=== PATIENT | male | born 1940 | race Caucasian/White ===

== ENCOUNTER → 2021-06-11 09:57 | Outpatient (BNVA) | payer MEDICARE, SELFPAY | PROVIDERS: PCP Family Medicine; Visit Provider Urology | DX: N40.0 Benign prostatic hyperplasia without lower urinary tract symptoms (principal) | CPT/HCPCS: 51798; 99212 ==

== ENCOUNTER → 2022-06-09 09:52 | Outpatient (BNVA) | payer MEDICARE, SELFPAY | PROVIDERS: PCP Family Medicine; Visit Provider Urology | DX: N40.0 Benign prostatic hyperplasia without lower urinary tract symptoms (principal) | CPT/HCPCS: 51798; 99212 ==

== ENCOUNTER 2023-06-13 10:36 | Outpatient (AMB) | payer MEDICARE, SELFPAY ==
--- NOTE | 2023-06-13 11:05 | A.OFFVIS_ITS ---
Intake Intake Visit Reasons: 1Y PSA(set) Intake Note: Patient is present for Follow Up PSA/PVR Urology Med: Tamsulosin Antibiotic Allergy:None Blood Thinner: None [facility] Allergies shrimp [SHRIMP] Allergy (Intermediate, Verified 06/09/22 09:58) HIVES shrimp Allergy (Unknown, Uncoded 06/11/21 10:04) Unknown Medication List - Last Reconciled 06/13/23 by Haroon Ruvalcaba MD losartan mg PO tamsulosin 0.4 mg PO DAILY 90 days HPI HPI Comments History of Present Illness Details Romel is a pleasant male. He is a patient of Dr. Main Banks. He is seen for the following urologic issues - lower urinary tract symptoms Yearly evaluation PVR 100 Adequate urinary parameters Remains on tamsulosin Lower urinary tract symptoms Prior history of urinary retention with UTI Current medication tamsulosin Good voiding parameters Nocturia minimal Effective stream BRINDA 2+ prostate 12 month review with PSA PFSH Medical History HTN (hypertension) H/O urinary retention BPH loc w urin obs/LUTS Surgical History History of surgery Social History Patient Tobacco Use Status: Former Tobacco user Review of Systems Const Denies chills and Denies fever(s) Card Reports no additional complaints and Denies syncope Resp Denies cough GI Denies abdominal pain and Denies heartburn Reports as per HPI and Denies change in libido Neuro Denies syncope Psych Denies change in libido Endo Denies change in libido Physical Exam Const General: cooperative, healthy appearing, comfortable and no acute distress Orientation/consciousness: patient oriented x3 HEENT Face and sinus: Yes normal facial exam Mouth: moist mucous membranes Neck Neck: Yes normal visual inspection, Yes full ROM and Yes trachea midline Chest Chest palpation & inspection: normal inspection of the chest Resp Effort & Inspection: normal respiratory effort, able to speak in complete sentences and no respiratory distress GI Inspection: Yes normal to inspection Back/Spine/Pelvis Cervical Spine: normal cervical lordosis Thoracic/Lumbar Spine: thoracic and lumbar spine normal to inspection Skin General skin exam: no rashes or lesions noted Neuro General: patient oriented x3, gait normal, tone normal and moves all extremities Extrem General: Yes normal to inspection and Yes capillary refill normal Office Procedures Post Void Residual Post Residual Void Post Void Residual (PVR): 100 [id number] Void Residual by ultrasound Assessment & Plan Assessment & Plan (1) BPH loc w urin obs/LUTS: Code(s): N40.1 - Benign prostatic hyperplasia with lower urinary tract symptoms Plan Twelve month follow-up Continue tamsulosin Orders: Orders AMB Post Void Residual by ultrasound Today N40.1 - Benign prostatic hyperplasia with lower urinary tract symptoms Medications: Refilled tamsulosin 0.4 mg PO DAILY 90 days 90 caps 3RF N40.1 - Benign prostatic hyperplasia with lower urinary tract symptoms Patient Instructions: Imaging studies, laboratory and physical exam results were discussed and reviewed in detail. No major barriers to patient understanding were identified. An opportunity to ask questions regarding the treatment plan was provided. All questions were answered. The patient expressed understanding and agreement with the above treatment plan. The patient is aware they should contact our office by phone for worsening of their current condition or the appearance of new urologic symptoms. Compliance is encouraged with any medications and followup testing that is ordered. It is a privilege to participate in the urologic care of your patient. If you have any questions or concerns regarding treatment for the above conditions, or other urologic issues, please do not hesitate to contact me. The office telephone contact is [phone]. This note is constructed using voice recognition software. While every effort has been made to ensure accuracy computer system validation specialist errors may have been included. Yours sincerely, Dr Haroon Ruvalcaba MD, [facility] - Urology Providers of Expert, Compassionate Care for the Genitourinary System Coding Level of Care Code Est Pt Level 4 (34849) Diagnoses BPH loc w urin obs/LUTS N40.1 CPT Codes Post Residual Void - PVR CPT Code: 58278-Ibmf Void Residual by ultrasound ([id number])
== END 2023-06-13 11:31 | disposition home or self-care (01) ==
PROVIDERS: PCP Family Medicine; Visit Provider Urology
DX: N40.1 Benign prostatic hyperplasia with lower urinary tract symptoms (principal)
CPT/HCPCS: 99214

== ENCOUNTER → 2023-06-13 10:36 | Outpatient (BNVA) | payer MEDICARE, SELFPAY | PROVIDERS: Visit Provider Urology | DX: N40.1 Benign prostatic hyperplasia with lower urinary tract symptoms (principal) | CPT/HCPCS: 51798; 99212 ==

== ENCOUNTER 2024-07-17 14:59 | Outpatient (AMB) | payer MEDICARE, SELFPAY ==
--- NOTE | 2024-07-17 15:05 | A.OFFVIS_ITS ---
Intake Visit Reasons: 1 yr/ PVR Intake Note: Patient is present for PVR Follow Up Urology Med: Tamsulosin Antibiotic Allergy: None Blood Thinner: None Last PVR:100ML Todays PVR: 0m Accompanied by: Self / Same As Patient Allergies shrimp [SHRIMP] Allergy (Intermediate, Verified 06/09/22 09:58) HIVES shrimp Allergy (Unknown, Uncoded 06/11/21 10:04) Unknown Medication List - Last Reconciled 07/17/24 by Haroon Ruvalcaba MD losartan mg PO tamsulosin 0.4 mg PO DAILY 90 days HPI Comments Details: Romel is a pleasant male. He is a patient of Dr. Main Banks. He is seen for the following urologic issues - lower urinary tract symptoms Yearly evaluation PVR 0 cc Adequate urinary parameters Remains on tamsulosin - will try coming off 06/17 4.1 Lower urinary tract symptoms Prior history of urinary retention with UTI Current medication tamsulosin Good voiding parameters Nocturia minimal Effective stream BRINDA 2+ prostate 12 month review with PSA PFS Medical History HTN (hypertension) H/O urinary retention BPH loc w urin obs/LUTS Surgical History History of surgery Social History Patient Tobacco Use Status: Former Tobacco user Review of Systems Const Denies chills and Denies fever(s) Card Reports no additional complaints and Denies syncope Resp Denies cough GI Denies abdominal pain and Denies heartburn Reports as per HPI and Denies change in libido Neuro Denies syncope Psych Denies change in libido Endo Denies change in libido Physical Exam Const General: cooperative, healthy appearing, comfortable and no acute distress Orientation/consciousness: patient oriented x3 HEENT Face and sinus: Yes normal facial exam Mouth: moist mucous membranes Neck Neck: Yes normal visual inspection, Yes full ROM and Yes trachea midline Chest Chest palpation & inspection: normal inspection of the chest Resp Effort & Inspection: normal respiratory effort, able to speak in complete sentences and no respiratory distress GI Inspection: Yes normal to inspection Back/Spine/Pelvis Cervical Spine: normal cervical lordosis Thoracic/Lumbar Spine: thoracic and lumbar spine normal to inspection Skin General skin exam: no rashes or lesions noted Neuro General: patient oriented x3, gait normal, tone normal and moves all extremities Extrem General: Yes normal to inspection and Yes capillary refill normal Office Procedures Post Void Residual Post Residual Void Post Void Residual (PVR): 100 [id number] Void Residual by ultrasound Assessment & Plan Assessment & Plan (1) BPH loc w urin obs/LUTS: Code(s): N40.1 - Benign prostatic hyperplasia with lower urinary tract symptoms Category: Medical Plan Twelve month follow-up PSA Orders: Orders AMB Post Void Residual by ultrasound Today N40.1 - Benign prostatic hyperplasia with lower urinary tract symptoms Prostate Specific Antigen 364 Days N40.1 - Benign prostatic hyperplasia with lower urinary tract symptoms Patient Instructions: Imaging studies, laboratory and physical exam results were discussed and reviewed in detail. No major barriers to patient understanding were identified. An opportunity to ask questions regarding the treatment plan was provided. All questions were answered. The patient expressed understanding and agreement with the above treatment plan. The patient is aware they should contact our office by phone for worsening of their current condition or the appearance of new urologic symptoms. Compliance is encouraged with any medications and followup testing that is ordered. It is a privilege to participate in the urologic care of your patient. If you have any questions or concerns regarding treatment for the above conditions, or other urologic issues, please do not hesitate to contact me. The office telephone contact is [phone]. This note is constructed using voice recognition software. While every effort has been made to ensure accuracy associate team physician errors may have been included. Yours sincerely, Dr Haroon Ruvalcaba MD, [facility] - Urology Providers of Expert, Compassionate Care for the Genitourinary System Coding Level of Care Code Est Pt Level 4 (25747) Diagnoses BPH loc w urin obs/LUTS N40.1 CPT Codes Post Residual Void - PVR CPT Code: 96171-Mcii Void Residual by ultrasound ([id number])
== END 2024-07-17 15:41 | disposition home or self-care (01) ==
PROVIDERS: PCP Family Medicine; Visit Provider Urology
DX: N40.1 Benign prostatic hyperplasia with lower urinary tract symptoms (principal)
CPT/HCPCS: 99214

== ENCOUNTER → 2024-07-17 14:59 | Outpatient (BNVA) | payer MEDICARE, SELFPAY | PROVIDERS: PCP Family Medicine; Visit Provider Urology | DX: N40.1 Benign prostatic hyperplasia with lower urinary tract symptoms (principal) | CPT/HCPCS: 51798; 99212 ==

== ENCOUNTER 2025-07-15 13:47 | Outpatient (REF) | payer MEDICARE, SELFPAY ==
--- OUTSIDE RECORDS SUMMARY | 2025-07-15 18:20 | XMS_ITS | Encounter Summary ---
Author Organization [facility] Address [address] [place] [address] Phone Care Team Providers Care Rod Pointer Name Role Phone Cesar Benítez MD Primary Care Prov ider Bipin Bautista DO Unavailable Encounter Details Date Type Department Care Team (Late st Contact Info) Description 08/29/2017 Transcribe Orders [facility] [address] [place] [id number] Cesar Benítez MD [address] [place] [address] [id number] [email or web address] Essential hypertension, benign (Primary Dx); Hyperlipidemia, unspecified hyperlipidemia type Social History Tobacco Use Types Packs/Day Years Used Date Smoking Tobacco: Never Assessed Sex and Gender Information Value Date Recorded Sex Assigned at Not on file Legal Sex Male 10:11 PM EDT Gender Identity Not on file Sexual Orientation Not on file documented as of this encounter Plan of Treatment Not on file documented as of this encounter Results * (ABNORMAL) Lipid panel (08/29/2017 8:46 AM EST) HDL 66 mg/dL [facility] Comment: Interpretation: Risk Level Males Decreased >45 mg/dL Average 40-45 mg/dL Increased <40 mg/dL CHOLESTEROL 204 0 - 240 mg/dL [facility] TRIGLYCERIDES 137 30 - 160 mg/dL [facility] LDL 111 50 - 129 mg/dL [facility] Comment: LDL levels in terms of risk for coronary heart disease: <100 mg/dL: Optimal 100-129 mg/dL: Near or above optimal 130-159 mg/dL: Borderline high 160-189 mg/dL: High >190 mg/dL: Very High CARDIAC RISK RATIO 3.1(L) 3.4 - 5.0 C [facility] Blood 08/29/2017 8:46 AM EST 08/29/2017 8:49 AM EST Cesar Olsen MD LAB BLOOD ORDERABL ES Final Result Performing Organization Address [facility]/ZIP Co de Phone Number [address] [address] * Basic metabolic panel (08/29/2017 8:46 AM EST) SODIUM 140 133 - 146 mmol/L [facility] CHLORIDE 102 96 - 108 mmol/L [facility] POTASSIUM 4.7 3.3 - 5.1 mmol/L [facility] CO2 28 21 - 35 mmol/L [facility] BUN 16 6 - 19 mg/dL [facility] CREATININE 0.90 0.5 - 1.5 mg/dL [facility] GLUCOSE 98 70 - 99 mg/dL [facility] CALCIUM 9.7 8.4 - 10.3 mg/dL [facility] EGFR >60 mL/min/1.7 3m2 [facility] Comment:Abnormal if <60. If patient is -[place], multiply the result by 1.21. ANION GAP 15 10 - 20 mmol/L [facility] Blood 08/29/2017 8:46 AM EST 08/29/2017 8:49 AM EST Cesar Olsen MD LAB BLOOD ORDERABL ES Final Result Performing Organization Address City/[facility]/ZIP Co de Phone Number [address] [address] documented in this encounter Visit Diagnoses Diagnosis Essential hypertension, benign- Primary Hyperlipidemia, unspecified hyperlipidemia type documented in this encounter Care Teams Rod Pointer Relationship Specialty Start Date End Date Cesar Benítez MD PCP - General Family Medicine 09/04/18 Bipin Bautista DO [address] [place] [address] [email or web address] Geriatric Medicine 04/01/25 documented as of this encounter Additional Source Comments The information contained in this document represents components of the legal health record. It is not the complete legal health record.[facility]
--- OUTSIDE RECORDS SUMMARY | 2025-07-15 18:20 | XMS_ITS | Encounter Summary ---
Author Organization [facility] Address [address] [place] [address] Phone Care Team Providers Care Test Department Helper Name Role Phone Cesar Benítez MD Primary Care Prov ider Bipin Bautista DO Unavailable [phone] Encounter Details Date Type Department Care Team (Late st Contact Info) Description 02/25/2019 Transcribe Orders [facility] [address] [place] [phone] Cesar Benítez MD [address] [place], [place] [id number] [email or web address] Essential hypertension, malignant (Primary Dx) Social History Tobacco Use Types Packs/Day Years Used Date Smoking Tobacco: Never Assessed Sex and Gender Information Value Date Recorded Sex Assigned at Not on file Legal Sex Male 10:11 PM EDT Gender Identity Not on file Sexual Orientation Not on file documented as of this encounter Plan of Treatment Not on file documented as of this encounter Results * (ABNORMAL) Basic metabolic panel (02/25/2019 8:12 AM EDT) SODIUM 142 133 - 146 mmol/L [facility] CHLORIDE 103 96 - 108 mmol/L [facility] POTASSIUM 4.4 3.3 - 5.1 mmol/L [facility] CO2 27 21 - 35 mmol/L [facility] BUN 20(H) 6 - 19 mg/dL [facility] CREATININE 0.90 0.5 - 1.5 mg/dL [facility] GLUCOSE 106(H) 70 - 99 mg/dL [facility] CALCIUM 9.8 8.4 - 10.3 mg/dL [facility] EGFR 82 >59 mL/min/1.7 3m2 [facility] Comment:If patient is black, multiply result by 1.159. Estimated glomerular filtration rate calculated using the CKD-EPI equation. ANION GAP 16 10 - 20 mmol/L [facility] Blood 02/25/2019 8:12 AM EDT 02/25/2019 9:18 AM EDT Cesar Olsen MD LAB BLOOD ORDERABL ES Final Result [facility] [address] [place] [address] documented in this encounter Visit Diagnoses Diagnosis Essential hypertension, malignant- Primary documented in this encounter Care Teams Test Department Helper Relationship Specialty Start Date End Date Cesar Benítez MD PCP - General Family Medicine 09/04/18 Bipin Bautista DO [address] [place] [id number] Geriatric Medicine 04/01/25 documented as of this encounter Additional Source Comments The information contained in this document represents components of the legal health record. It is not the complete legal health record.[facility]
--- OUTSIDE RECORDS SUMMARY | 2025-07-15 18:20 | XMS_ITS | Encounter Summary ---
Author Organization [facility] Address [address] [place] [address] Phone Care Team Providers Care Cardiology Fellow Name Role Phone Cesar Benítez MD Primary Care Prov ider Bipin Bautista DO Unavailable [phone] Encounter Details Date Type Department Care Team (Late st Contact Info) Description 09/30/[address] [facility] [address] [place] [address] Cesar Benítez MD [address] [place], [place] [id number] [email or web address] Essential hypertension, malignant (Primary Dx) [...] encounter Results * (ABNORMAL) Basic metabolic panel (04/16/2020 8:40 AM EDT) SODIUM 142 133 - 146 mmol/L [facility] CHLORIDE 103 96 - 108 mmol/L [facility] POTASSIUM 4.2 3.3 - 5.1 mmol/L [facility] CO2 27 21 - 35 mmol/L [facility] BUN 21(H) 6 - 19 mg/dL [facility] CREATININE 0.90 0.5 - 1.5 mg/dL [facility] GLUCOSE 101(H) 70 - 99 mg/dL [facility] CALCIUM 9.7 8.4 - 10.3 mg/dL [facility] EGFR 82 >59 mL/min/1.7 3m2 [facility] Comment:Estimated glomerular filtration rate calculated using the CKD-EPI equation. ANION GAP 16 10 - 20 mmol/L [facility] Blood 04/16/2020 8:40 AM EDT 04/16/2020 8:44 AM EDT Cesar Olsen MD LAB BLOOD ORDERABL ES Final Result Performing Organization Address City/[facility]/ZIP Co de Phone Number [address] [address] * (ABNORMAL) Lipid panel (09/30/2019 8:35 AM EST) HDL 72 mg/dL [facility] Comment: Interpretation <40 mg/dL: Low HDL cholesterol (major risk factor for CHD) Greater than or equal to 60 mg/dL: High HDL cholesterol ( negative risk factor for CHD) HDL - cholesterol is affected by a number of factors, e.g. smoking, excerise, hormones, sex and age. CHOLESTEROL 178 0 - 240 mg/dL [facility] TRIGLYCERIDES 75 30 - 160 mg/dL [facility] LDL 91 50 - 129 mg/dL [facility] Comment: LDL levels in terms of risk for coronary heart disease: <100 mg/dL: Optimal 100-129 mg/dL: Near or above optimal 130-159 mg/dL: Borderline high 160-189 mg/dL: High >190 mg/dL: Very High CARDIAC RISK RATIO 2.5(L) 3.4 - 5.0 C [facility] Blood 09/30/2019 8:35 AM EST 09/30/2019 10:28 AM EST Cesar Olsen MD LAB BLOOD ORDERABL ES Final Result Performing Organization Address City/[facility]/ZIP Co de Phone Number [address] [address] * (ABNORMAL) Basic metabolic panel (09/30/2019 8:35 AM EST) SODIUM 140 133 - 146 mmol/L [facility] CHLORIDE 99 96 - 108 mmol/L [facility] POTASSIUM 4.4 3.3 - 5.1 mmol/L [facility] CO2 28 21 - 35 mmol/L [facility] BUN 17 6 - 19 mg/dL [facility] CREATININE 0.90 0.5 - 1.5 mg/dL [facility] GLUCOSE 101(H) 70 - 99 mg/dL [facility] CALCIUM 9.2 8.4 - 10.3 mg/dL [facility] EGFR 82 >59 mL/min/1.7 3m2 [facility] Comment:If patient is black, multiply result by 1.159. Estimated glomerular filtration rate calculated using the CKD-EPI equation. ANION GAP 17 10 - 20 mmol/L [facility] Blood 09/30/2019 8:35 AM EST 09/30/2019 10:28 AM EST Cesar Olsen MD LAB BLOOD ORDERABL ES Final Result [address] [address] documented in this encounter Visit Diagnoses Diagnosis Essential hypertension, malignant- Primary documented in this encounter Care Teams Cardiology Fellow Relationship Specialty Start Date End Date Cesar Benítez MD PCP - General Family Medicine 09/04/18 Bipin Bautista DO [address] [place] [address] [email or web address] Geriatric Medicine 04/01/25 documented as of this encounter Additional Source Comments The information contained in this document represents components of the legal health record. It is not the complete legal health record.[facility]
--- OUTSIDE RECORDS SUMMARY | 2025-07-15 18:20 | XMS_ITS | Encounter Summary ---
Author Organization [facility] Address [address] [facility] [address] [place] [address] Phone Care Team Providers Care Scout Sniper Name Role Phone Cesar Benítez MD Primary Care Prov ider Bipin Bautista DO Unavailable [phone] Reason for Referral * MRI/CAT Scan - Closed Specialty Diagnoses / Procedures Referred By Christopher saunders Referred To Contact Radiology Diagnoses Dementia without behavioral disturbance, psychotic disturbance, mood disturbance, or anxiety, unspecified dementia severity, unspecified dementia type Procedures MRI Brain Cesar Benítez MD [address] [place] [address] Phone: tel: fax: [email or web address] Referral ID Status Reason Start Date Expiration Date Visits Re quested Visits Authorized [id number] Closed 03/03/2025 03/03/2026 1 1 Encounter Details Date Type Department Care Team (Late st Contact Info) Description 03/03/2025 Transcribe Orders Virtual Department [address] [place] [address] Cesar Benítez MD [address] [place] [address] [email or web address] Dementia without behavioral disturbance, psychotic disturbance, mood disturbance, or anxiety, unspecified dementia severity, unspecified dementia type (Primary Dx) Social History Tobacco Use Types Packs/Day Years Used Date Smoking Tobacco: Never Assessed Education Answer Date Recorded Are you interested in more education? Not on zee e 01/20/2023 Are you concerned about learning? Not on file 01/20/2023 No 01/20/2023 No 01/20/2023 Digital Access Answer Date Recorded No 02/20/2023 No 02/20/2023 No 02/20/2023 Reliable internet access at home? Not on file 02/20/2023 Device with a working camera? Not on file Sex and Gender Information Value Date Recorded Sex Assigned at Not on file Legal Sex Male 10:11 PM EDT Gender Identity Not on file Sexual Orientation Not on file documented as of this encounter Plan of Treatment Not on file documented as of this encounter Results * MRI BRAIN WITHOUT CONTRAST (03/22/2025 5:53 PM EDT) Anatomical Region Laterality Modality Head Magnetic Resonan ce 03/25/2025 8:15 PM EDT Impressions 03/25/2025 9:19 PM EDT 1. No acute intracranial abnormality. 2. Severe chronic small vessel ischemic changes. 3. Multiple scattered chronic microhemorrhages. 4. Generalized parenchymal volume loss without a regional pattern suggestive of a specific neurodegenerative diagnosis. Narrative 03/25/2025 9:19 PM EDT MRI BRAIN WITHOUT CONTRAST Referring clinician's provided indication for this examination in [facility]: Outside Radiology Order; dementia TECHNIQUE: MRI BRAIN WITHOUT CONTRAST Multi-sequence, multi-planar MRI of the brain was performed without intravenous contrast. COMPARISON: None FINDINGS: Brain Parenchyma: No evidence of acute infarct, mass or acute hemorrhage. There are confluent and scattered foci of T2 hyperintensity in the white matter, likely a manifestation of chronic small vessel disease. Scattered (greater than 40) foci of magnetic susceptibility effect are noted peripherally in the cerebral hemispheres. Scattered prominent perivascular spaces versus chronic lacunar infarcts are noted in the thakur radiata and centrum semiovale. Generalized parenchymal volume loss. Ventricular System and Extra-Axial Spaces: The ventricles and cortical sulci are prominent, as commonly seen in patients of this age. No evidence of midline shift or hydrocephalus. Extracranial Structures: Expected arterial flow signal is observed at the skull base. Scattered moderate paranasal sinus opacification. Procedure Note Luciano Whitfield MD - 03/25/2025 MRI BRAIN WITHOUT CONTRAST Referring clinician's provided indication for this examination in [facility]:Outside Radiology Order; dementia TECHNIQUE: MRI BRAIN WITHOUT CONTRAST Multi-sequence, multi-planar MRI of the brain was performed withoutintravenous contrast. COMPARISON: None FINDINGS: Brain Parenchyma: No evidence of acute infarct, mass or acute hemorrhage.There are confluent and scattered foci of T2 hyperintensity in the whitematter, likely a manifestation of chronic small vessel disease. Scattered(greater than 40) foci of magnetic susceptibility effect are notedperipherally in the cerebral hemispheres. Scattered prominent perivascularspaces versus chronic lacunar infarcts are noted in the thakur radiata andcentrum semiovale. Generalized parenchymal volume loss. Ventricular System and Extra-Axial Spaces: The ventricles and corticalsulci are prominent, as commonly seen in patients of this age. No evidenceof midline shift or hydrocephalus. Extracranial Structures: Expected arterial flow signal is observed at theskull base. Scattered moderate paranasal sinus opacification. IMPRESSION: 1. No acute intracranial abnormality. 2. Severe chronic small vessel ischemic changes. 3. Multiple scattered chronic microhemorrhages. 4. Generalized parenchymal volume loss without a regional patternsuggestive of a specific neurodegenerative diagnosis. Cesar Olsen MD IMG MR HEAD/NECK F inal Result documented in this encounter Visit Diagnoses Diagnosis Dementia without behavioral disturbance, psychotic disturbance, mood disturbance, or anxiety, unspecified dementia severity, unspecified dementia type- Primary Dementia without behavioral disturbance, psychotic disturbance, mood disturbance, or anxiety, unspecified dementia severity, unspecified dementia type documented in this encounter Care Teams Scout Sniper Relationship Specialty Start Date End Date Cesar Benítez MD PCP - General Family Medicine 09/04/18 Bipin Bautista DO [address] [place] [address] Geriatric Medicine 04/01/25 documented as of this encounter Additional Source Comments The information contained in this document represents components of the legal health record. It is not the complete legal health record.[facility]
--- OUTSIDE RECORDS SUMMARY | 2025-07-15 18:20 | XMS_ITS | Encounter Summary ---
Author Organization [facility] Address [address] [facility] [address] [place] [address] Phone Care Team Providers Care Relays Draftsperson Name Role Phone Cesar Benítez MD Primary Care Prov ider Bipin Bautista DO Unavailable [phone] Encounter Details Date Type Department Care Team (Late st Contact Info) Description 03/03/2025 Procedure Pass [facility], [address] [address] Social History Tobacco Use Types Packs/Day Years [...] on file documented as of this encounter Visit Diagnoses Not on filedocumented in this encounter Care Teams Relays Draftsperson Relationship Specialty Start Date End Date Cesar Benítez MD PCP - General Family Medicine 09/04/18 Bipin Bautista DO [address] [place] [address] [email or web address] Geriatric Medicine 04/01/25 documented as of this encounter Additional Source Comments The information contained in this document represents components of the legal health record. It is not the complete legal health record.[facility]
--- OUTSIDE RECORDS SUMMARY | 2025-07-15 18:20 | XMS_ITS | Clinical Summary ---
Author Organization [facility] Address [address] [address] Phone Care Team Providers Care Agricultural Sciences Professor Name Role Phone Cesar Benítez MD Primary Care Prov ider MicheleBipin fine Remington DO Unavailable [phone] Social History Tobacco Use Types Packs/Day Years [...] on file Sexual Orientation Not on file Last Filed Vital Signs Vital Sign Reading Time Taken Comments Blood Pressure - - Pulse - - Temperature - - Respiratory Rate - - Oxygen Saturation - - Inhaled Oxygen Concentration - - Weight 77.1 kg (170 lb) 03/16/2025 1:20 PM EDT Height 172.7 cm (5' 8 ) 03/16/2025 1:20 PM EDT Body Mass Index 25.85 03/16/2025 1:20 PM EDT Plan of Treatment Health Maintenance Due Date Last Done Comments Adult Td,Tdap Booster 1940 BLOOD PRESSURE 1940 DEPRESSION SCREENING 1953 ZOSTER VACCINES (1 of 2) 1991 RSV VACCINE (1 - 1-dose 75+ series) 2016 INFLUENZA VACCINE (#1) 2025 0, 06/15/2019, 07/13/2018, Additional history exists COVID-19 VACCINE (2024- season) 2025 12/02/2020, 11/04/2020 PNEUMOCOCCAL VACCINES (50+ years) Completed 03/03/2016, 09/05/2012 HEPATITIS A VACCINES Aged Out No long er eligible based on patient's age to complete this topic HIB VACCINES Aged Out No longer eligi ble based on patient's age to complete this topic MENINGOCOCCAL VACCINES (ACWY) Aged Out No longer eligible based on patient's age to complete this topic MENINGOCOCCAL VACCINES (B) Aged Out N o longer eligible based on patient's age to complete this topic Medical Devices Not on file Insurance [employer] MEDEX SUPPLEMENT MEDICARE PART A & B [employer] MED[employer] SUPPLEMENT MEDICARE PART A & B [employer] MEDEX SUPPLEMENT MEDICARE PART A & B [employer] MEDEX SUPPLEMENT MEDICARE PART A & B [employer] MEDEX SUPPLEMENT MEDICARE PART A & B [employer] MEDEX SUPPLEMENT MEDICARE PART A & B [employer] MEDEX SUPPLEMENT MEDICARE PART A & B [employer] MEDEX SUPPLEMENT MEDICARE PART A & B [employer] MEDEX SUPPLEMENT Care Teams Agricultural Sciences Professor Relationship Specialty Start Date End Date Cesar Benítez MD PCP - General Family Medicine 09/04/18 Bipin Bautista DO [address] [place] [phone] [email or web address] Geriatric Medicine 04/01/25 Additional Source Comments The information contained in this document represents components of the legal health record. It is not the complete legal health record.[facility]
--- OUTSIDE RECORDS SUMMARY | 2025-07-15 18:20 | XMS_ITS | Encounter Summary ---
Author Organization [facility] Address [address] [facility] [address] [place] [address] Phone Care Team Providers Care Extrusion Utility Worker Name Role Phone Cesar Benítez MD Primary Care Prov ider Bipin Bautista DO Unavailable [phone] Encounter Details Date Type Department Care Team (Late st Contact Info) Description 02/28/2018 Transcribe Orders [facility] [address] [place] [address] Cesar Benítez MD [address] [place] [address] [phone] [email or web address] Essential hypertension, benign (Primary Dx); Hyperlipidemia, unspecified [...] this encounter Results * (ABNORMAL) Lipid panel (02/28/2018 8:27 AM EDT) HDL 66 mg/dL [facility] Comment: Interpretation: Risk Level Males Decreased >45 mg/dL Average 40-45 mg/dL Increased <40 mg/dL CHOLESTEROL 182 0 - 240 mg/dL [facility] TRIGLYCERIDES 121 30 - 160 mg/dL [facility] LDL 92 50 - 129 mg/dL [facility] Comment: LDL levels in terms of risk for coronary heart disease: <100 mg/dL: Optimal 100-129 mg/dL: Near or above optimal 130-159 mg/dL: Borderline high 160-189 mg/dL: High >190 mg/dL: Very High CARDIAC RISK RATIO 2.8(L) 3.4 - 5.0 C [facility] Blood 02/28/2018 8:27 AM EDT 02/28/2018 9:00 AM EDT Cesar Olsen MD LAB BLOOD ORDERABL ES Final Result Performing Organization Address City/[facility]/ZIP Co de Phone Number [address] [address] * (ABNORMAL) Basic metabolic panel (02/28/2018 8:27 AM EDT) SODIUM 143 133 - 146 mmol/L [facility] CHLORIDE 104 96 - 108 mmol/L [facility] POTASSIUM 4.2 3.3 - 5.1 mmol/L [facility] CO2 29 21 - 35 mmol/L [facility] BUN 16 6 - 19 mg/dL [facility] CREATININE 1.00 0.5 - 1.5 mg/dL [facility] GLUCOSE 101(H) 70 - 99 mg/dL [facility] CALCIUM 9.3 8.4 - 10.3 mg/dL [facility] EGFR 73 >59 mL/min/1.7 3m2 [facility] Comment:If patient is black, multiply result by 1.159. The eGFR calculation has changed from the MDRD equation to the CKD-EPI equation as of November 28, 2017. ANION GAP 14 10 - 20 mmol/L [facility] Blood 02/28/2018 8:27 AM EDT 02/28/2018 9:00 AM EDT us Cesar Olsen MD LAB BLOOD ORDERABL ES Final Result Performing Organization Address City/[facility]/ZIP Co de Phone Number [address] [address] documented in this encounter Visit Diagnoses Diagnosis Essential hypertension, benign- Primary Hyperlipidemia, unspecified hyperlipidemia type documented in this encounter Care Teams Extrusion Utility Worker Relationship Specialty Start Date End Date Cesar Benítez MD [email or web address] PCP - General Family Medicine 09/04/18 Bipin Bautista DO [address] [place] [address] [email or web address] Geriatric Medicine 04/01/25 documented as of this encounter Additional Source Comments The information contained in this document represents components of the legal health record. It is not the complete legal health record.[facility]
[2025-07-15 18:39] LABS: Prostate Specific Antigen 5.22 ng/mL (<0.05-4.0)
== END 2025-07-15 13:48 | disposition home or self-care (01) ==
LOC: HO.WFDLDS 13:47
PROVIDERS: Visit Provider Urology
DX: N40.1 Benign prostatic hyperplasia with lower urinary tract symptoms (principal); Z12.5 Encounter for screening for malignant neoplasm of prostate
CPT/HCPCS: 36415; 84153

== ENCOUNTER 2025-07-30 10:05 | Outpatient (AMB) | payer MEDICARE, SELFPAY ==
--- NOTE | 2025-07-30 10:08 | MHC.OFFVIS ---
Intake Visit Reasons: 1y/PSA/PVR Intake Note: Patient is present for Yearly PSA/PVR Follow up Urology Med: Tamsulosin Antibiotic Allergy:None Blood Thinner: None PVR: 126ml Audio/Visual Manager Required: No Accompanied by: Self / Same As Patient Allergies shrimp (SHRIMP) Allergy (Intermediate, Verified 07/30/25 10:08) HIVES shrimp Allergy (Unknown, Uncoded 07/30/25 10:08) Unknown HPI Comments Details: Romel is a pleasant male. He is a patient of Dr. Main Banks. He is seen for the following urologic issues - lower urinary tract symptoms Yearly evaluation Slow PSA rise 06/17 4.1, 10/19 5.2 Off tamsulosin 12 month follow-up repeat PSA Lower urinary tract symptoms Prior history of urinary retention with UTI Current medication tamsulosin Good voiding parameters Nocturia minimal Effective stream BRINDA 2+ prostate 12 month review with PSA PFSH Medical History HTN (hypertension) H/O urinary retention BPH loc w urin obs/LUTS Surgical History History of surgery Social History Patient Tobacco Use Status: Former Tobacco user Review of Systems Const Denies chills and Denies fever(s) Card Reports no additional complaints and Denies syncope Resp Denies cough GI Denies abdominal pain and Denies heartburn Reports as per HPI and Denies change in libido Neuro Denies syncope Psych Denies change in libido Endo Denies change in libido Physical Exam Const General: cooperative, healthy appearing, comfortable and no acute distress Orientation/consciousness: patient oriented x3 HEENT Face and sinus: Yes normal facial exam Mouth: moist mucous membranes Neck Neck: Yes normal visual inspection, Yes full ROM and Yes trachea midline Chest Chest palpation & inspection: normal inspection of the chest Resp Effort & Inspection: normal respiratory effort, able to speak in complete sentences and no respiratory distress GI Inspection: Yes normal to inspection Back/Spine/Pelvis Cervical Spine: normal cervical lordosis Thoracic/Lumbar Spine: thoracic and lumbar spine normal to inspection Skin General skin exam: no rashes or lesions noted Neuro General: patient oriented x3, gait normal, tone normal and moves all extremities Extrem General: Yes normal to inspection and Yes capillary refill normal Office Procedures Post Void Residual Post Residual Void Post Void Residual (PVR): 126 [id number] Void Residual by ultrasound Assessment & Plan Assessment & Plan (1) BPH loc w urin obs/LUTS: Code(s): N40.1 - Benign prostatic hyperplasia with lower urinary tract symptoms Category: Medical Plan Twelve month follow-up repeat PVR and PSA Orders: Orders AMB Post Void Residual by ultrasound Today N40.1 - Benign prostatic hyperplasia with lower urinary tract symptoms Prostate Specific Antigen 12 Months N40.1 - Benign prostatic hyperplasia with lower urinary tract symptoms Medications: Discontinued tamsulosin Discontinued Reason: Patient Completed Course 0.4 mg PO DAILY 90 days 90 caps 0RF N40.1 - Benign prostatic hyperplasia with lower urinary tract symptoms Patient Instructions: This note is constructed using voice recognition software. While every effort has been made to ensure accuracy lavender farm worker errors may have been included. Imaging studies, laboratory and physical exam results were discussed and reviewed in detail. No major barriers to patient understanding were identified. An opportunity to ask questions regarding the treatment plan was provided. All questions were answered. The patient expressed understanding and agreement with the above treatment plan. The patient is aware they should contact our office by phone for worsening of their current condition or the appearance of new urologic symptoms. Compliance is encouraged with any medications and followup testing that is ordered. It is a privilege to participate in the urologic care of your patient. If you have any questions or concerns regarding treatment for the above conditions, or other urologic issues, please do not hesitate to contact me. The office telephone contact is [phone]. Sincerely, Dr Haroon Ruvalcaba MD, JEREMIE [facility] - Urology Compassionate Specialist Care for the Genitourinary System Coding Level of Care Code Est Pt Level 4 (10321) Complex EM visit Add On G2211 Diagnoses BPH loc w urin obs/LUTS N40.1 CPT Codes Post Residual Void - PVR CPT Code: 78183-Utyj Void Residual by ultrasound ([id number])
--- OUTSIDE RECORDS SUMMARY | 2025-07-30 11:36 | XMS_ITS | Encounter Summary ---
Author Organization [facility] Address [address] [facility] [address] [place] [address] Phone Care Team Providers Care Program Coordinator Name Role Phone Cesar Benítez MD Primary Care Prov ider Bipin Bautista DO Unavailable [phone] Reason for Referral * MRI/CAT Scan - Closed Specialty Diagnoses / Procedures Referred By Christopher saunders Referred To Contact Radiology Diagnoses Dementia without behavioral disturbance, psychotic disturbance, mood disturbance, or anxiety, unspecified dementia severity, unspecified dementia type Procedures MRI Brain Cesar Benítez MD [address] [place] [address] Phone: tel: fax: [email or web address] Referral ID Status Reason Start Date Expiration Date Visits Re quested Visits Authorized [id number] Closed 03/03/2025 03/03/2026 1 1 Encounter Details Date Type Department Care Team (Late st Contact Info) Description 03/03/2025 Transcribe Orders Virtual Department [address] [place] [address] Cesar Benítez MD [address] [place] [address] [email or web address] Dementia without behavioral disturbance, psychotic disturbance, [...] clinician's provided indication for this examination in [facility]: Outside Radiology Order; dementia TECHNIQUE: MRI BRAIN [...] clinician's provided indication for this examination in [facility]:Outside Radiology Order; dementia TECHNIQUE: MRI BRAIN WITHOUT [...] type documented in this encounter Care Teams Program Coordinator Relationship Specialty Start Date End Date Cesar Benítez MD PCP - General Family Medicine 09/04/18 Bipin Bautista DO [address] [place] [address] Geriatric Medicine 04/01/25 documented as of this encounter Additional Source Comments The information contained in this document represents components of the legal health record. It is not the complete legal health record.[facility]
--- OUTSIDE RECORDS SUMMARY | 2025-07-30 11:36 | XMS_ITS | Encounter Summary ---
Author Organization [facility] Address [address] [facility] [address] [place] [address] Phone Care Team Providers Care Online Journalist Name Role Phone Cesar Benítez MD Primary Care Prov ider Bipin Bautista DO Unavailable [phone] Encounter Details Date Type Department Care Team (Late st Contact Info) Description 08/29/2017 Transcribe Orders [address] [address] Cesar Benítez MD [address] [place] [address] [phone] [email or web address] Essential hypertension, benign (Primary Dx); Hyperlipidemia, unspecified [...] (08/29/2017 8:46 AM EST) HDL 66 mg/dL [facility] Comment: Interpretation: Risk Level Males Decreased >45 mg/dL Average 40-45 mg/dL Increased <40 mg/dL CHOLESTEROL 204 0 - 240 mg/dL [facility] TRIGLYCERIDES 137 30 - 160 mg/dL [facility] LDL 111 50 - 129 mg/dL [facility] Comment: LDL levels in terms of risk for coronary heart disease: <100 mg/dL: Optimal 100-129 mg/dL: Near or above optimal 130-159 mg/dL: Borderline high 160-189 mg/dL: High >190 mg/dL: Very High CARDIAC RISK RATIO 3.1(L) 3.4 - 5.0 C [facility] Blood 08/29/2017 8:46 AM EST 08/29/2017 8:49 AM EST us Cesar Olsen MD LAB BLOOD BKR FARTUN CLARISSE Final Result Performing Organization Address City/[facility]/ZIP Co de Phone Number [address] [address] * Basic metabolic panel (08/29/2017 8:46 AM EST) SODIUM 140 133 - 146 mmol/L [facility] CHLORIDE 102 96 - 108 mmol/L [facility] POTASSIUM 4.7 3.3 - 5.1 mmol/L [facility] CO2 28 21 - 35 mmol/L [facility] BUN 16 6 - 19 mg/dL [facility] CREATININE 0.90 0.5 - 1.5 mg/dL [facility] GLUCOSE 98 70 - 99 mg/dL [facility] CALCIUM 9.7 8.4 - 10.3 mg/dL [facility] EGFR >60 mL/min/1.7 3m2 [facility] Comment:Abnormal if <60. If patient is -Samoan, multiply the result by 1.21. ANION GAP 15 10 - 20 mmol/L [facility] Blood 08/29/2017 8:46 AM EST 08/29/2017 8:49 AM EST us Cesar Olsen MD LAB BLOOD BKR FARTUN ROBB Final Result [address] [address] documented in this encounter Visit Diagnoses Diagnosis Essential hypertension, benign- Primary Hyperlipidemia, unspecified hyperlipidemia type documented in this encounter Care Teams Online Journalist Relationship Specialty Start Date End Date Cesar Benítez MD [email or web address] PCP - General Family Medicine 12/11/18 Bipin Bautista DO [address] [place] [address] [email or web address] Geriatric Medicine 04/01/25 documented as of this encounter Additional Source Comments The information contained in this document represents components of the legal health record. It is not the complete legal health record.[facility]
--- OUTSIDE RECORDS SUMMARY | 2025-07-30 11:36 | XMS_ITS | Encounter Summary ---
Author Organization [facility] Address [address] [facility] [address] [place] [address] Phone Care Team Providers Care Drawer In Name Role Phone Cesar Benítez MD Primary Care Prov ider Bipin Bautista DO Unavailable [phone] Encounter Details Date Type Department Care Team (Late st Contact Info) Description 02/28/2018 Transcribe Orders [address] [address] Cesar Benítez MD [address] [place] [address] [phone] [email or web address] Essential hypertension, benign (Primary Dx); Hyperlipidemia, unspecified [...] (02/28/2018 8:27 AM EDT) HDL 66 mg/dL [facility] Comment: Interpretation: Risk Level Males Decreased >45 mg/dL Average 40-45 mg/dL Increased <40 mg/dL CHOLESTEROL 182 0 - 240 mg/dL [facility] TRIGLYCERIDES 121 30 - 160 mg/dL [facility] LDL 92 50 - 129 mg/dL [facility] Comment: LDL levels in terms of risk for coronary heart disease: <100 mg/dL: Optimal 100-129 mg/dL: Near or above optimal 130-159 mg/dL: Borderline high 160-189 mg/dL: High >190 mg/dL: Very High CARDIAC RISK RATIO 2.8(L) 3.4 - 5.0 C [facility] Blood 02/28/2018 8:27 AM EDT 02/28/2018 9:00 AM EDT Cesar Olsen MD LAB BLOOD BKR ORDMeghana ROBB Final Result Performing Organization Address City/[facility]/ZIP Co de Phone Number [address] [address] * (ABNORMAL) Basic metabolic panel (02/28/2018 8:27 AM EDT) SODIUM 143 133 - 146 mmol/L [facility] CHLORIDE 104 96 - 108 mmol/L [facility] POTASSIUM 4.2 3.3 - 5.1 mmol/L [facility] CO2 29 21 - 35 mmol/L [facility] BUN 16 6 - 19 mg/dL [facility] CREATININE 1.00 0.5 - 1.5 mg/dL [facility] GLUCOSE 101(H) 70 - 99 mg/dL [facility] CALCIUM 9.3 8.4 - 10.3 mg/dL [facility] EGFR 73 >59 mL/min/1.7 3m2 [facility] Comment:If patient is black, multiply result by 1.159. The eGFR calculation has changed from the MDRD equation to the CKD-EPI equation as of November 28, 2017. ANION GAP 14 10 - 20 mmol/L [facility] Blood 02/28/2018 8:27 AM EDT 02/28/2018 9:00 AM EDT Cesar Olsen MD LAB BLOOD BKR ORDMeghana GARCIAVAL Final Result [address] [address] documented in this encounter Visit Diagnoses Diagnosis Essential hypertension, benign- Primary Hyperlipidemia, unspecified hyperlipidemia type documented in this encounter Care Teams Drawer In Relationship Specialty Start Date End Date Cesar Benítez MD [email or web address] PCP - General Family Medicine 09/04/18 Bipin Bautista DO [address] [place] [phone] [email or web address] Geriatric Medicine 04/01/25 documented as of this encounter Additional Source Comments The information contained in this document represents components of the legal health record. It is not the complete legal health record.[facility]
--- OUTSIDE RECORDS SUMMARY | 2025-07-30 11:36 | XMS_ITS | Clinical Summary ---
Author Organization [facility] Address [address] [address] Phone Care Team Providers Care Straightener And Aligner Name Role Phone Cesar Benítez MD Primary Care Prov ider MicheleBipin fnie Remington DO Unavailable Social History Tobacco Use Types Packs/Day Years [...] topic Medical Devices Not on file Insurance [employer] MEDEX SUPPLEMENT MEDICARE PART A & B [employer] SUPPLEMENT MEDICARE PART A & B [employer] MEDEX SUPPLEMENT MEDICARE PART A & B [employer] MEDEX SUPPLEMENT MEDICARE PART A & B [employer] MEDEX SUPPLEMENT MEDICARE PART A & B [employer] MEDEX SUPPLEMENT MEDICARE PART A & B [employer] MEDEX SUPPLEMENT MEDICARE PART A & B [employer] MEDEX SUPPLEMENT MEDICARE PART A & B [employer] MEDEX SUPPLEMENT Care Teams Straightener And Aligner Relationship Specialty Start Date End Date Cesar Benítez MD PCP - General Family Medicine 09/04/18 Biipn Bautista DO [address] [place] [id number] [email or web address] Geriatric Medicine 04/01/25 Additional Source Comments The information contained in this document represents components of the legal health record. It is not the complete legal health record.[facility]
--- OUTSIDE RECORDS SUMMARY | 2025-07-30 11:36 | XMS_ITS | Encounter Summary ---
Author Organization [facility] Address [address] [facility] [address] [place] [address] Phone Care Team Providers Care Air Brake Rigger Name Role Phone Cesar Benítez MD Primary Care Prov ider Bipin Bautista DO Unavailable [phone] Encounter Details Date Type Department Care Team (Late st Contact Info) Description 03/03/2025 Procedure Pass [facility], [address] [address] Social History Tobacco Use Types Packs/Day Years [...] on filedocumented in this encounter Care Teams Air Brake Rigger Relationship Specialty Start Date End Date Cesar Benítez MD PCP - General Family Medicine 09/04/18 Bipin Bautista DO [address] [place] [address] [email or web address] Geriatric Medicine 04/01/25 documented as of this encounter Additional Source Comments The information contained in this document represents components of the legal health record. It is not the complete legal health record.[facility]
--- OUTSIDE RECORDS SUMMARY | 2025-07-30 11:36 | XMS_ITS | Encounter Summary ---
Author Organization [facility] Address [address] [facility] [address] [place] [address] Phone Care Team Providers Care Maintenance Fitter Name Role Phone Cesar Benítez MD Primary Care Prov ider Bipin Bautista DO Unavailable [phone] Encounter Details Date Type Department Care Team (Late st Contact Info) Description 02/25/2019 Transcribe Orders [address] [address] Cesar Benítez MD [address] [place] [address] [phone] [email or web address] Essential hypertension, malignant (Primary Dx) Social History [...] EDT) SODIUM 142 133 - 146 mmol/L [facility] CHLORIDE 103 96 - 108 mmol/L [facility] POTASSIUM 4.4 3.3 - 5.1 mmol/L [facility] CO2 27 21 - 35 mmol/L [facility] BUN 20(H) 6 - 19 mg/dL [facility] CREATININE 0.90 0.5 - 1.5 mg/dL [facility] GLUCOSE 106(H) 70 - 99 mg/dL [facility] CALCIUM 9.8 8.4 - 10.3 mg/dL [facility] EGFR 82 >59 mL/min/1.7 3m2 [facility] Comment:If patient is black, multiply result by 1.159. Estimated glomerular filtration rate calculated using the CKD-EPI equation. ANION GAP 16 10 - 20 mmol/L [facility] Blood 02/25/2019 8:12 AM EDT 02/25/2019 9:18 AM EDT Cesar Olsen MD LAB BLOOD BKR FARTUN ROBB Final Result [address] [address] documented in this encounter Visit Diagnoses Diagnosis Essential hypertension, malignant- Primary documented in this encounter Care Teams Maintenance Fitter Relationship Specialty Start Date End Date Cesar Benítez MD PCP - General Family Medicine 09/04/18 Bipin Bautista DO [address] [place] [id number] Geriatric Medicine 04/01/25 documented as of this encounter Additional Source Comments The information contained in this document represents components of the legal health record. It is not the complete legal health record.[facility]
--- OUTSIDE RECORDS SUMMARY | 2025-07-30 11:37 | XMS_ITS | Encounter Summary ---
Author Organization [facility] Address [address] [facility] [address] [place] [address] Phone Care Team Providers Care Architectural Draftsperson Name Role Phone Cesar Benítez MD Primary Care Prov ider Bipin Bautista DO Unavailable [phone] Encounter Details Date Type Department Care Team (Late st Contact Info) Description 09/30/2019 Transcribe Orders [facility] [address] [address] Cesar Benítez MD [address] [place] [address] [phone] [email or web address] Essential hypertension, malignant (Primary Dx) Social [...] EDT) SODIUM 142 133 - 146 mmol/L [facility] CHLORIDE 103 96 - 108 mmol/L [facility] POTASSIUM 4.2 3.3 - 5.1 mmol/L [facility] CO2 27 21 - 35 mmol/L [facility] BUN 21(H) 6 - 19 mg/dL [facility] CREATININE 0.90 0.5 - 1.5 mg/dL [facility] GLUCOSE 101(H) 70 - 99 mg/dL [facility] CALCIUM 9.7 8.4 - 10.3 mg/dL [facility] EGFR 82 >59 mL/min/1.7 3m2 [facility] Comment:Estimated glomerular filtration rate calculated using the CKD-EPI equation. ANION GAP 16 10 - 20 mmol/L [facility] Blood 04/16/2020 8:40 AM EDT 04/16/2020 8:44 AM EDT Cesar Olsen MD LAB BLOOD BKR FARTUN ROBB Final Result Performing Organization Address City/[facility]/ZIP Co de Phone Number [address] [address] * (ABNORMAL) Lipid panel (09/30/2019 8:35 AM EST) HDL 72 mg/dL [facility] Comment: Interpretation <40 mg/dL: Low HDL cholesterol (major risk factor for CHD) Greater than or equal to 60 mg/dL: High HDL cholesterol ( negative risk factor for CHD) HDL - cholesterol is affected by a number of factors, e.g. smoking, excerise, hormones, sex and age. CHOLESTEROL 178 0 - 240 mg/dL [facility] TRIGLYCERIDES 75 30 - 160 mg/dL [facility] LDL 91 50 - 129 mg/dL [facility] Comment: LDL levels in terms of risk for coronary heart disease: <100 mg/dL: Optimal 100-129 mg/dL: Near or above optimal 130-159 mg/dL: Borderline high 160-189 mg/dL: High >190 mg/dL: Very High CARDIAC RISK RATIO 2.5(L) 3.4 - 5.0 C [facility] Blood 09/30/2019 8:35 AM EST 09/30/2019 10:28 AM EST Cesar Olsen MD LAB BLOOD BKR FARTUN ROBB Final Result Performing Organization Address City/[facility]/ZIP Co de Phone Number [address] [address] * (ABNORMAL) Basic metabolic panel (09/30/2019 8:35 AM EST) SODIUM 140 133 - 146 mmol/L [facility] CHLORIDE 99 96 - 108 mmol/L [facility] POTASSIUM 4.4 3.3 - 5.1 mmol/L [facility] CO2 28 21 - 35 mmol/L [facility] BUN 17 6 - 19 mg/dL [facility] CREATININE 0.90 0.5 - 1.5 mg/dL [facility] GLUCOSE 101(H) 70 - 99 mg/dL [facility] CALCIUM 9.2 8.4 - 10.3 mg/dL [facility] EGFR 82 >59 mL/min/1.7 3m2 [facility] Comment:If patient is black, multiply result by 1.159. Estimated glomerular filtration rate calculated using the CKD-EPI equation. ANION GAP 17 10 - 20 mmol/L [facility] Blood 09/30/2019 8:35 AM EST 09/30/2019 10:28 AM EST Cesar Olsen MD LAB BLOOD BKR FARTUN ROBB Final Result Performing Organization Address City/State/[facility] Co de Phone Number [address] [address] documented in this encounter Visit Diagnoses Diagnosis Essential hypertension, malignant- Primary documented in this encounter Care Teams Architectural Draftsperson Relationship Specialty Start Date End Date Cesar Benítez MD PCP - General Family Medicine 09/04/18 Bipin Bautista DO [address] [place] [id number] Geriatric Medicine 04/01/25 documented as of this encounter Additional Source Comments The information contained in this document represents components of the legal health record. It is not the complete legal health record.[facility]
== END 2025-07-30 10:34 | disposition home or self-care (01) ==
LOC: HO.HUSH 10:06
PROVIDERS: PCP Family Medicine; Visit Provider Urology
DX: N40.1 Benign prostatic hyperplasia with lower urinary tract symptoms (principal)
CPT/HCPCS: 99214

== ENCOUNTER → 2025-07-30 10:05 | Outpatient (BNVA) | payer MEDICARE, SELFPAY | PROVIDERS: PCP Family Medicine; Visit Provider Urology | DX: N40.1 Benign prostatic hyperplasia with lower urinary tract symptoms (principal) | CPT/HCPCS: 51798; 99212 ==

== ENCOUNTER 2025-08-13 14:29 | Emergency (ER) | payer MEDICARE, SELFPAY ==
--- NOTE | ~2025-08-13 | CT_ITS ---
CLINICAL HISTORY: lower abdominal pain CT ABDOMEN AND PELVIS WITH CONTRAST Comparison: None provided Findings: Bilateral lower lobe atelectasis and/or scarring. 4 mm nodule in the right lower lobe with no visible calcifications. No acute abnormalities in the solid organs. Probable small cysts in the liver and left kidney. 3.5 cm and 3.8 cm right renal cysts. No large calcified gallstone. Atherosclerotic changes; no AAA. Mildly thickened adrenal glands can be seen with hyperplasia. No discrete nodule. [id number]-[id number] fluid distention of the ascending, transverse and descending colon. Moderate amount of retained stool in the sigmoid colon with rectal impaction up to 8.0 cm. Multiple diverticula throughout the colon with no significant mucosal or paracolic edema. The appendix is not visualized. No small-bowel obstruction or ileus. No ascites, free air or pneumatosis. Fat containing small periumbilical hernia. Fat containing small left inguinal hernia. The prostate is enlarged with AP x transverse dimensions of 4.3 x 6.1 cm. There is mass effect on and likely invasion of the urinary bladder base. There is diffuse irregular urinary bladder wall thickening. Mild superior endplate compression deformity in T12 with no significant bony retropulsion. No lymphadenopathy or osteoblastic lesion. IMPRESSION: 1. Colonic diverticulosis with no convincing evidence for acute diverticulitis. 2. Prostatomegaly. Urinary bladder wall thickening secondary to cystitis versus outlet obstruction. 3. No acute obstructive uropathy or urolithiasis. 4. Nonspecific fluid distention of multiple segments of the colon. Rectal impaction. 5. Nonspecific 4 mm nodule in the right lower lobe. 6. Age-indeterminate mild T12 compression fracture. This document has been electronically signed by: Cecilia Flower DO on 08/13/2025 18:56:58
[2025-08-13 14:34] VITALS: BP 143/80; PULSE 92; RESP 18; TEMP 36.6; O2SAT 98; BMI 24.6
[2025-08-13 15:10] LABS: Hematocrit 39.4 % (42.0-52.0); Hemoglobin 14.0 g/dl (14.0-18.0); Imm Gran Abs Auto 0.07 X10*3/uL (0.00-0.03); Imm Gran Pct Auto 1.0 % (0.0-0.4); Lymphocytes Absolute Auto 0.9 X10*3/uL (1.2-4.9); MANUAL DIFF FLAG SCAN; Mean Corpuscular HGB Conc 35.5 g/dl (31.0-36.0); Mean Corpuscular Volume 96.1 fL (80.0-98.0); NRBC Abs Auto 0.000 X10*3/uL (0.0-0.012); NRBC Pct Auto 0.0 /100WBC (0.0-0.2); PLT CLUMP 1; Red Blood Count 4.10 X10*6/uL (4.60-5.80); SCAN SMEAR FLAG 1; White Blood Count 7.1 X10*3/uL (4.8-10.8)
[2025-08-13 15:11] LABS: Mean Corpuscular Hemoglobin 34.1 pg (27.0-33.0)
[2025-08-13 15:29] LABS: Platelet Count 128 X10*3/uL (160-400)
[2025-08-13 17:21] LABS: Alanine Aminotransferase 21 U/L (0-40); Albumin Level 4.3 g/dL (3.5-5.0); Alkaline Phosphatase 56 U/L (39-117); Anion Gap 12 (12-20); Aspartate Amino Transferase 30 U/L (5-37); Blood Urea Nitrogen 20 mg/dL (9-16); Calcium 9.1 mg/dL (8.4-10.2); Carbon Dioxide 26 mmol/L (22-29); Chloride 105 mmol/L (96-108); Creatinine Clr Calc Pharmacy 67.4; Estimated Glomerular Filt Rate > 60; Potassium 3.9 mmol/L (3.3-5.1); Sodium 139 mmol/L (135-145); Total Protein 6.4 g/dL (6.5-8.0)
--- NOTE | 2025-08-13 17:48 | ED.ABDPAIN ---
HPI - Abdominal Pain General Chief Complaint: Abdominal Pain Stated Complaint: ABD PAIN,DIARRHEA X1W,FAM CONCERN FOR DEHYDRATION Time Seen by Provider: 08/13/25 14:44 Source: patient, family, RN notes reviewed and old records reviewed Mode of arrival: EMS Limitations: other (Dementia) History of Present Illness ED Provider: Dev HPI narrative: Patient is an 83 year old male with a pmhx of BPH, Dementia, and HTN presenting with an approximately 6 day history of diarrhea. Patient's family members states the pt complained of diarrhea on Wednesday 08/08. Yesterday, pt remembers the abdominal pain starting and having leaking diarrhea that is dark in color, and pain with defecation, straining, and feeling of incomplete emptying. Pt reports taking a laxative, Delucolax in hopes to relieve his symptoms. Denies blood in stool. Pt states at some point he did a self digital rectal exam which he felt a ball of stool. Related Data Home Medications ?Medication ?Instructions ?Recorded ?Confirmed losartan 50 mg tablet mg PO 06/11/21 07/17/24 memantine 10 mg tablet 10 mg PO BID 07/30/25 Previous Rx's ?Medication ?Instructions ?Recorded docusate sodium 100 mg capsule 100 mg PO BID PRN constipation #20 08/13/25 (Colace) caps polyethylene glycol 3350 17 17 g PO DAILY 2 weeks #238 grams 08/13/25 gram/dose oral powder (Miralax) Allergies Allergy/AdvReac Type Severity Reaction Status Date / Time shrimp (SHRIMP) Allergy Intermediate HIVES Verified 08/13/25 14:36 shrimp Allergy Unknown Unknown Uncoded 08/13/25 14:36 Review of Systems Constitutional: Reports as per HPI, Denies chills, Denies fatigue, Denies fever(s) and Denies headache(s) Denies headache(s) Cardiovascular: Denies chest pain and Denies dyspnea Respiratory: Denies cough and Denies dyspnea Gastrointestinal: Reports abdominal pain, Denies melena, Reports bloating, Denies hematochezia, Reports change in bowel habits, Reports diarrhea, Denies nausea and Denies vomiting Comments: Endorses pain with defecation. Genitourinary: Denies difficulty urinating and Denies dysuria Denies headache(s) and Denies focal weakness Endocrine: Denies fatigue PMFSH Past Medical History Medical History HTN (hypertension) H/O urinary retention BPH loc w urin obs/LUTS Surgical History History of surgery Social History Social History Unable to assess alcohol history related to: Unknown Patient Tobacco Use Status: Former Tobacco user Advance Directives: No Advance Directives Information Provided: No Do you have a plan to hurt others: No Plan Physical Exam ED Vital Signs: Vital Signs - 24 hr 08/13/25 14:34 Temperature 97.9 F Pulse Rate 92 Respiratory Rate 18 Blood Pressure 143/80 H Pulse Oximetry 98 Oxygen Delivery Method Room Air BMI result Body Mass Index 24.6 Const General: healthy appearing, comfortable, no acute distress, alert and awake Nutritional Appearance: well nourished Orientation/consciousness: patient oriented x3 HENMT Head: Yes normocephalic and Yes atraumatic Resp Effort & Inspection: normal respiratory effort, able to speak in complete sentences and not labored GI Inspection: Yes normal to inspection and No distended Palpation (GI): Soft to palpation, not firm, Tenderness to palpation present (GI) suprapubicly, no guarding and not rigid Percussion: Yes normal to percussion Auscultation: normoactive bowel sounds Skin General skin exam: no rashes or lesions noted and elasticity normal Neuro General: patient oriented x3 Extrem Other: Moving all extremities well without any obvious deformities Course Reevaluation(s) Reevaluation #1: The patient was able to have a very large bowel movement. He is stable for discharge, we will discharge him with MiraLax, Colace and instructions to increase fluid and fiber isn't Time: 21:13 Medical Decision Making Medical Decision Making MDM Narrative: 84-year-old male presents for evaluation of lower abdominal pain. He has had some diarrhea for the last few days. He had no improvement with taking the laxative. He attempted due manually disimpact himself without any success. Given his abdominal discomfort and tenderness on exam, a CT scan the pelvis was ordered which shows significant constipation with a stool ball in the rectum. I discussed treatment options with the patient including digital rectal disimpaction versus laxatives an enema. The patient does not wish to have a digital rectal disimpaction at this time. We will attempt lactulose in an enema. Differential Diagnosis Differential Diagnoses: The differential diagnosis associated with the presentation includes Constipation Stool ball Equal impaction Colitis Diverticulitis Appendicitis Lab Data 08/13/25 14:49 08/13/25 16:50 Labs: Lab Results 08/13/25 08/13/25 Range/Units 14:49 16:50 WBC 7.1 (4.8-10.8) X10*3/uL RBC 4.10 L (4.60-5.80) X10*6/uL Hgb 14.0 (14.0-18.0) g/dl Hct 39.4 L (42.0-52.0) % MCV 96.1 (80.0-98.0) fL MCH 34.1 H (27.0-33.0) pg MCHC 35.5 (31.0-36.0) g/dl RDW 11.8 (11.0-16.0) % Plt Count 128 L (160-400) X10*3/uL MPV 10.9 (9.4-12.4) fL Immature Gran % (Auto) 1.0 H (0.0-0.4) % Neut % (Auto) 74.9 H (45-73) % Lymph % (Auto) 13.3 L (20-40) % Concho % (Auto) 7.8 (2-11) % Eos % (Auto) 2.4 (0-4) % Baso % (Auto) 0.6 (0-2) % Lymph # (Auto) 0.9 L (1.2-4.9) X10*3/uL [place]cho # (Auto) 0.6 (0.1-1.2) X10*3/uL Eos # (Auto) 0.2 (0.0-0.4) X10*3/uL Baso # (Auto) 0.0 (0.0-0.2) X10*3/uL Abs Immat Gran (auto) 0.07 H (0.00-0.03) X10*3/uL Absolute Neuts (auto) 5.3 (2.0-8.3) x10*3/uL Absolute Nucleated RBC 0.000 (0.0-0.012) X10*3/uL Nucleated RBC % (auto) 0.0 (0.0-0.2) /100WBC Smear Tech's Comments VERIFIED Sodium 139 (135-145) mmol/L Potassium 3.9 (3.3-5.1) mmol/L Chloride 105 (96-108) mmol/L Carbon Dioxide 26 (22-29) mmol/L Anion Gap 12 (12-20) BUN 20 H (9-16) mg/dL Creatinine 0.83 (0.5-1.4) mg/dL Estim Creat Clear Calc 67.4 Estimated GFR > 60 Random Glucose 94 (60-115) mg/dL Calcium 9.1 (8.4-10.2) mg/dL Total Bilirubin 1.3 H (0.0-1.0) mg/dL AST 30 (5-37) U/L ALT 21 (0-40) U/L Alkaline Phosphatase 56 (39-117) U/L Total Protein 6.4 L (6.5-8.0) g/dL Albumin 4.3 (3.5-5.0) g/dL Medications Administered Discontinued Medications Generic Name Dose Route Start Last Admin Trade Name Freq PRN Reason Stop Dose Admin Iohexol 100 ml 08/13/25 18:01 08/13/25 18:01 Iohexol 350 Mg/Ml 100 Ml Infus..Btl IV 08/13/25 18:02 85 ml ONCE ONE Administration Lactulose 40 gm 08/13/25 19:17 08/13/25 19:32 Lactulose 20 Gm/30 Ml Solution PO 08/13/25 19:18 40 gm ONCE ONE Administration Discharge Plan Discharge Clinical Impression: Constipation Patient Disposition: Home, Self-Care Instructions: Constipation (ED), High Fiber Diet (ED) Additional Instructions: Increase fluid and fiber intake in your diet. I recommend taking MiraLax every night for the next 2 weeks You may use Colace as needed for constipation Follow-up with your primary doctor, return for new or worsening symptoms Prescriptions: New polyethylene glycol 3350 [Miralax] 17 gram/dose powder 17 g PO DAILY 14 Days Qty: 238 0RF docusate sodium [Colace] 100 mg capsule 100 mg PO BID PRN (Reason: constipation) Qty: 20 0RF No Action losartan 50 mg tablet PO memantine 10 mg tablet 10 mg PO BID Print Language: Ukrainian
[2025-08-13] MEDS: iohexoL 350 MG/ML 100 ML INFUS..BTL IV (18:01)
[2025-08-13 22:12] VITALS: BP 140/85; PULSE 89; RESP 18; TEMP 36.6; O2SAT 98
--- OUTSIDE RECORDS SUMMARY | 2025-08-14 04:25 | XMS_ITS | Encounter Summary ---
Author Organization [facility] Address [address] [facility] [address] [place] [address] Phone Care Team Providers Care Upper Shaper Name Role Phone Cesar Benítez MD Primary Care Prov ider Bipin Bautista DO Unavailable [phone] Encounter Details Date Type Department Care Team (Late st Contact Info) Description 08/29/2017 Transcribe Orders [address] [address] Cesar Benítez MD [address] [place] [address] [phone] [email or web address] Essential hypertension, benign (Primary Dx); Hyperlipidemia, unspecified [...] (08/29/2017 8:46 AM EST) HDL 66 mg/dL [facility] Comment: Interpretation: Risk Level Males Decreased >45 mg/dL Average 40-45 mg/dL Increased <40 mg/dL CHOLESTEROL 204 0 - 240 mg/dL [facility] TRIGLYCERIDES 137 30 - 160 mg/dL [facility] LDL 111 50 - 129 mg/dL [facility] Comment: LDL levels in terms of risk for coronary heart disease: <100 mg/dL: Optimal 100-129 mg/dL: Near or above optimal 130-159 mg/dL: Borderline high 160-189 mg/dL: High >190 mg/dL: Very High CARDIAC RISK RATIO 3.1(L) 3.4 - 5.0 [facility] Blood 08/29/2017 8:46 AM EST 08/29/2017 8:49 AM EST us Cesar Olsen MD LAB BLOOD BKR FARTUN CLARISSE Final Result Performing Organization Address City/[facility]/ZIP Co de Phone Number [address] [address] * Basic metabolic panel (08/29/2017 8:46 AM EST) SODIUM 140 133 - 146 mmol/L [facility] CHLORIDE 102 96 - 108 mmol/L [facility] POTASSIUM 4.7 3.3 - 5.1 mmol/L [facility] CO2 28 21 - 35 mmol/L [facility] BUN 16 6 - 19 mg/dL [facility] CREATININE 0.90 0.5 - 1.5 mg/dL [facility] GLUCOSE 98 70 - 99 mg/dL [facility] CALCIUM 9.7 8.4 - 10.3 mg/dL [facility] EGFR >60 mL/min/1.7 3m2 [facility] Comment:Abnormal if <60. If patient is -Palestinian, multiply the result by 1.21. ANION GAP 15 10 - 20 mmol/L [facility] Blood 08/29/2017 8:46 AM EST 08/29/2017 8:49 AM EST us Cesar Olsen MD LAB BLOOD BKR FARTUN ROBB Final Result [address] [address] documented in this encounter Visit Diagnoses Diagnosis Essential hypertension, benign- Primary Hyperlipidemia, unspecified hyperlipidemia type documented in this encounter Care Teams Upper Shaper Relationship Specialty Start Date End Date Cesar Benítez MD [email or web address] PCP - General Family Medicine 12/11/18 Bipin Bautista DO [address] [place] [address] [email or web address] Geriatric Medicine 04/01/25 documented as of this encounter Additional Source Comments The information contained in this document represents components of the legal health record. It is not the complete legal health record.[facility]
--- OUTSIDE RECORDS SUMMARY | 2025-08-14 04:25 | XMS_ITS | Encounter Summary ---
Author Organization [facility] Address [address] [facility] [address] [place] [address] Phone Care Team Providers Care Shipping Associate Name Role Phone Cesar Benítez MD Primary Care Prov ider Bipin Bautista DO Unavailable [phone] Reason for Referral * MRI/CAT Scan - Closed Specialty Diagnoses / Procedures Referred By Christopher saunders Referred To Contact Radiology Diagnoses Dementia without behavioral disturbance, psychotic disturbance, mood disturbance, or anxiety, unspecified dementia severity, unspecified dementia type Procedures MRI Brain Cesar Benítez MD [address] [place] [address] Phone: tel: fax: [email or web address] Referral ID Status Reason Start Date Expiration Date Visits Re quested Visits Authorized [id number] Closed 03/03/2025 03/03/2026 1 1 Encounter Details Date Type Department Care Team (Late st Contact Info) Description 03/03/2025 Transcribe Orders Virtual Department [address] [place] [address] Cesar Benítez MD [address] [place] [address] [email or web address] Dementia without behavioral disturbance, psychotic [...] clinician's provided indication for this examination in [facility]: Outside Radiology Order; dementia TECHNIQUE: MRI BRAIN [...] clinician's provided indication for this examination in [facility]:Outside Radiology Order; dementia TECHNIQUE: MRI BRAIN WITHOUT [...] type documented in this encounter Care Teams Shipping Associate Relationship Specialty Start Date End Date Cesar Benítez MD PCP - General Family Medicine 09/04/18 Biipn Bautista DO [address] [place] [phone] Geriatric Medicine 04/01/25 documented as of this encounter Additional Source Comments The information contained in this document represents components of the legal health record. It is not the complete legal health record.[facility]
--- OUTSIDE RECORDS SUMMARY | 2025-08-14 04:25 | XMS_ITS ---
Author Organization Unknown ENCOUNTERS Encounter Performer Location Date Diagnosis Diagnosis Status Emergency [place] LarisaValencia [facility] [address] [place] [id number] [place] Pre Admit THERESA RYDER [facility] [address] [place] [address] [id number] *Note: Encounters from your own facility or health system may be excluded. Allergies, Adverse Reactions, Alerts Allergen Type Severity Identification Date Medications Name Date Quantity Days Supplied GPI Number
--- OUTSIDE RECORDS SUMMARY | 2025-08-14 04:25 | XMS_ITS | Clinical Summary ---
Author Organization [facility] Address [address] [address] Phone Care Team Providers Care Engineering Technical Analyst Name Role Phone Cesar Benítez MD Primary Care Prov ider MicheleBipin fine Remington DO Unavailable Social History Tobacco Use [...] topic Medical Devices Not on file Insurance [employer] CROSS MEDEX SUPPLEMENT MEDICARE PART A & B [employer] MEDEX SUPPLEMENT MEDICARE PART A & B [employer] MEDEX SUPPLEMENT MEDICARE PART A & B [employer] MEDEX SUPPLEMENT MEDICARE PART A & B [employer] MED[employer] SUPPLEMENT MEDICARE PART A & B [employer] MEDEX SUPPLEMENT MEDICARE PART A & B [employer] MEDEX SUPPLEMENT MEDICARE PART A & B [employer] MEDEX SUPPLEMENT MEDICARE PART A & B [employer] MEDEX SUPPLEMENT Care Teams Engineering Technical Analyst Relationship Specialty Start Date End Date Cesar Benítez MD PCP - General Family Medicine 09/04/18 Bipin Bautista DO [address] [place] [id number] [email or web address] Geriatric Medicine 04/01/25 Additional Source Comments The information contained in this document represents components of the legal health record. It is not the complete legal health record.[facility]
--- OUTSIDE RECORDS SUMMARY | 2025-08-14 04:25 | XMS_ITS | Encounter Summary ---
Author Organization [facility] Address [address] [facility] [address] [place] [address] Phone Care Team Providers Care Insurance Follow Up Rep Name Role Phone Cesar Benítez MD Primary Care Prov ider Bipin Bautista DO Unavailable [phone] Encounter Details Date Type Department Care Team (Late st Contact Info) Description 02/28/2018 Transcribe Orders [address] [address] Cesar Benítez MD [address] [place] [address] [phone] [email or web address] Essential hypertension, benign (Primary Dx); Hyperlipidemia, unspecified [...] (02/28/2018 8:27 AM EDT) HDL 66 mg/dL [facility] Comment: Interpretation: Risk Level Males Decreased >45 mg/dL Average 40-45 mg/dL Increased <40 mg/dL CHOLESTEROL 182 0 - 240 mg/dL [facility] TRIGLYCERIDES 121 30 - 160 mg/dL [facility] LDL 92 50 - 129 mg/dL [facility] Comment: LDL levels in terms of risk for coronary heart disease: <100 mg/dL: Optimal 100-129 mg/dL: Near or above optimal 130-159 mg/dL: Borderline high 160-189 mg/dL: High >190 mg/dL: Very High CARDIAC RISK RATIO 2.8(L) 3.4 - 5.0 [facility] Blood 02/28/2018 8:27 AM EDT 02/28/2018 9:00 AM EDT Cesar Olsen MD LAB BLOOD BKR ORDMeghana ROBB Final Result Performing Organization Address City/[facility]/ZIP Co de Phone Number [address] [address] * (ABNORMAL) Basic metabolic panel (02/28/2018 8:27 AM EDT) SODIUM 143 133 - 146 mmol/L [facility] CHLORIDE 104 96 - 108 mmol/L [facility] POTASSIUM 4.2 3.3 - 5.1 mmol/L [facility] CO2 29 21 - 35 mmol/L [facility] BUN 16 6 - 19 mg/dL [facility] CREATININE 1.00 0.5 - 1.5 mg/dL [facility] GLUCOSE 101(H) 70 - 99 mg/dL [facility] CALCIUM 9.3 8.4 - 10.3 mg/dL [facility] EGFR 73 >59 mL/min/1.7 3m2 [facility] Comment:If patient is black, multiply result by 1.159. The eGFR calculation has changed from the MDRD equation to the CKD-EPI equation as of November 28, 2017. ANION GAP 14 10 - 20 mmol/L [facility] Blood 02/28/2018 8:27 AM EDT 02/28/2018 9:00 AM EDT Cesar Olsen MD LAB BLOOD BKR ORDMeghana GARCIAVAL Final Result [address] [address] documented in this encounter Visit Diagnoses Diagnosis Essential hypertension, benign- Primary Hyperlipidemia, unspecified hyperlipidemia type documented in this encounter Care Teams Insurance Follow Up Rep Relationship Specialty Start Date End Date Cesar Benítez MD [email or web address] PCP - General Family Medicine 09/04/18 Bipin Bautista DO [address] [place] [address] [email or web address] Geriatric Medicine 04/01/25 documented as of this encounter Additional Source Comments The information contained in this document represents components of the legal health record. It is not the complete legal health record.[facility]
--- OUTSIDE RECORDS SUMMARY | 2025-08-14 04:25 | XMS_ITS | Encounter Summary ---
Author Organization [facility] Address [address] [facility] [address] [place] [address] Phone Care Team Providers Care Steel Handler Name Role Phone Cesar Benítez MD Primary Care Prov ider Bipin Bautista DO Unavailable [phone] Encounter Details Date Type Department Care Team (Late st Contact Info) Description 02/25/2019 Transcribe Orders [address] [address] Cesar Benítez MD [address] [place] [address] [phone] [email or web address] Essential hypertension, malignant (Primary Dx) [...] EDT) SODIUM 142 133 - 146 mmol/L [facility] CHLORIDE 103 96 - 108 mmol/L [facility] POTASSIUM 4.4 3.3 - 5.1 mmol/L [facility] CO2 27 21 - 35 mmol/L [facility] BUN 20(H) 6 - 19 mg/dL [facility] CREATININE 0.90 0.5 - 1.5 mg/dL [facility] GLUCOSE 106(H) 70 - 99 mg/dL [facility] CALCIUM 9.8 8.4 - 10.3 mg/dL [facility] EGFR 82 >59 mL/min/1.7 3m2 [facility] Comment:If patient is black, multiply result by 1.159. Estimated glomerular filtration rate calculated using the CKD-EPI equation. ANION GAP 16 10 - 20 mmol/L [facility] Blood 02/25/2019 8:12 AM EDT 02/25/2019 9:18 AM EDT Cesar Olsen MD LAB BLOOD BKR FARTUN ROBB Final Result [address] [address] documented in this encounter Visit Diagnoses Diagnosis Essential hypertension, malignant- Primary documented in this encounter Care Teams Steel Handler Relationship Specialty Start Date End Date Cesar Benítez MD PCP - General Family Medicine 09/04/18 Bipin Bautista DO [address] [place] [address] Geriatric Medicine 04/01/25 documented as of this encounter Additional Source Comments The information contained in this document represents components of the legal health record. It is not the complete legal health record.[facility]
--- OUTSIDE RECORDS SUMMARY | 2025-08-14 04:25 | XMS_ITS | Encounter Summary ---
Author Organization [facility] Address [address] [facility] [address] [place] [address] Phone Care Team Providers Care Procurement Services Manager Name Role Phone Cesar Benítez MD Primary Care Prov ider Bipin Bautista DO Unavailable [phone] Encounter Details Date Type Department Care Team (Late st Contact Info) Description 03/03/2025 Procedure [facility], [address] [address] Social History Tobacco Use Types Packs/Day Years [...] on filedocumented in this encounter Care Teams Procurement Services Manager Relationship Specialty Start Date End Date Cesar Benítez MD PCP - General Family Medicine 09/04/18 Bipin Bautista DO [address] [place] [address] [email or web address] Geriatric Medicine 04/01/25 documented as of this encounter Additional Source Comments The information contained in this document represents components of the legal health record. It is not the complete legal health record.[facility]
--- OUTSIDE RECORDS SUMMARY | 2025-08-14 04:26 | XMS_ITS | Encounter Summary ---
Author Organization [facility] Address [address] [facility] [address] [place] [address] Phone Care Team Providers Care Site Damage Prevention Technician Name Role Phone Cesar Benítez MD Primary Care Prov ider Bipin Bautista DO Unavailable [phone] Encounter Details Date Type Department Care Team (Late st Contact Info) Description 09/30/2019 Transcribe Orders [facility] [address] [address] Cesar Benítez MD [address] [place] [address] [phone] [email or web address] Essential hypertension, malignant (Primary Dx) Social [...] EDT) SODIUM 142 133 - 146 mmol/L [facility] CHLORIDE 103 96 - 108 mmol/L [facility] POTASSIUM 4.2 3.3 - 5.1 mmol/L [facility] CO2 27 21 - 35 mmol/L [facility] BUN 21(H) 6 - 19 mg/dL [facility] CREATININE 0.90 0.5 - 1.5 mg/dL [facility] GLUCOSE 101(H) 70 - 99 mg/dL [facility] CALCIUM 9.7 8.4 - 10.3 mg/dL [facility] EGFR 82 >59 mL/min/1.7 3m2 [facility] Comment:Estimated glomerular filtration rate calculated using the CKD-EPI equation. ANION GAP 16 10 - 20 mmol/L [facility] Blood 04/16/2020 8:40 AM EDT 04/16/2020 8:44 AM EDT Cesar Olsen MD LAB BLOOD BKR FARTUN ROBB Final Result Performing Organization Address City/[facility]/ZIP Co de Phone Number [address] [address] * (ABNORMAL) Lipid panel (09/30/2019 8:35 AM EST) HDL 72 mg/dL [facility] Comment: Interpretation <40 mg/dL: Low HDL cholesterol (major risk factor for CHD) Greater than or equal to 60 mg/dL: High HDL cholesterol ( negative risk factor for CHD) HDL - cholesterol is affected by a number of factors, e.g. smoking, excerise, hormones, sex and age. CHOLESTEROL 178 0 - 240 mg/dL [facility] TRIGLYCERIDES 75 30 - 160 mg/dL [facility] LDL 91 50 - 129 mg/dL [facility] Comment: LDL levels in terms of risk for coronary heart disease: <100 mg/dL: Optimal 100-129 mg/dL: Near or above optimal 130-159 mg/dL: Borderline high 160-189 mg/dL: High >190 mg/dL: Very High CARDIAC RISK RATIO 2.5(L) 3.4 - 5.0 C [facility] Blood 09/30/2019 8:35 AM EST 09/30/2019 10:28 AM EST Cesar Olsen MD LAB BLOOD BKR FARTUN ROBB Final Result Performing Organization Address City/[facility]/ZIP Co de Phone Number [address] [address] * (ABNORMAL) Basic metabolic panel (09/30/2019 8:35 AM EST) SODIUM 140 133 - 146 mmol/L [facility] CHLORIDE 99 96 - 108 mmol/L [facility] POTASSIUM 4.4 3.3 - 5.1 mmol/L [facility] CO2 28 21 - 35 mmol/L [facility] BUN 17 6 - 19 mg/dL [facility] CREATININE 0.90 0.5 - 1.5 mg/dL [facility] GLUCOSE 101(H) 70 - 99 mg/dL [facility] CALCIUM 9.2 8.4 - 10.3 mg/dL [facility] EGFR 82 >59 mL/min/1.7 3m2 [facility] Comment:If patient is black, multiply result by 1.159. Estimated glomerular filtration rate calculated using the CKD-EPI equation. ANION GAP 17 10 - 20 mmol/L [facility] Blood 09/30/2019 8:35 AM EST 09/30/2019 10:28 AM EST Cesar Olsen MD LAB BLOOD BKR FARTUN ROBB Final Result Performing Organization Address City/State/[place] Co de Phone Number [address] [address] documented in this encounter Visit Diagnoses Diagnosis Essential hypertension, malignant- Primary documented in this encounter Care Teams Site Damage Prevention Technician Relationship Specialty Start Date End Date Cesar Benítez MD PCP - General Family Medicine 09/04/18 Bipin Bautista DO [address] [place] [address] Geriatric Medicine 04/01/25 documented as of this encounter Additional Source Comments The information contained in this document represents components of the legal health record. It is not the complete legal health record.[facility]
== END 2025-08-13 22:18 | disposition home or self-care (01) ==
PROVIDERS: Emergency Medicine; Emergency Provider Emergency Medicine; PCP Family Medicine
DX: K59.00 Constipation, unspecified (principal); R10.30 Lower abdominal pain, unspecified; R19.7 Diarrhea, unspecified; I10 Essential (primary) hypertension; K57.30 Diverticulosis of large intestine without perforation or abscess without bleeding; Z87.891 Personal history of nicotine dependence
CPT/HCPCS: 36415; 74177; 80053; 85025; 99284; 99285; Q9967

== ENCOUNTER → 2025-08-13 17:47 | Outpatient (BNV) | payer MEDICARE, SELFPAY | PROVIDERS: PCP Family Medicine; Visit Provider Radiology Diagnostic Radiology | DX: K57.30 Diverticulosis of large intestine without perforation or abscess without bleeding (principal); N40.1 Benign prostatic hyperplasia with lower urinary tract symptoms | CPT/HCPCS: 74177 ==